=== PATIENT | female | born 1955 | race Caucasian/White ===

== ENCOUNTER 2024-10-06 09:07 | Emergency (ER) | payer MEDICAID ==
[~2024-10-06] VITALS: Ht 165.1 cm; Wt 77.1 kg
[2024-10-06 09:44] LABS: BASOPHILS # (AUTO) 0.1 K/uL (0.0-0.2); BASOPHILS % (AUTO) 0.7 % (0.0-2.0); EOSINOPHILS # (AUTO) 0.5 K/uL (0.0-0.7); EOSINOPHILS % (AUTO) 6.2 % (0.0-6.0); HEMATOCRIT 42 % (33-45); HEMOGLOBIN 13.9 g/dL (11.5-14.8); LYMPHOCYTES # (AUTO) 2.8 K/uL (0.8-4.8); LYMPHOCYTES % (AUTO) 34.7 % (20.0-44.0); MEAN CORPUSCULAR HEMOGLOBIN 30 PG (26.0-33.0); MEAN CORPUSCULAR HGB CONC 33 g/dl (31.0-36.0); MEAN CORPUSCULAR VOLUME 89 fL (82-100); MONOCYTES # (AUTO) 0.7 K/uL (0.1-1.30); MONOCYTES % (AUTO) 8.7 % (2.0-12.0); NEUTROPHILS % (AUTO) 49.7 % (43.0-81.0); PLATELET COUNT (AUTO) 261 K/uL (150-450)
[2024-10-06 10:05] LABS: ALANINE AMINOTRANSFERASE 32 U/L (12-78); ALBUMIN 3.7 g/dL (3.4-5.0); ALKALINE PHOSPHATASE 79 U/L (46-116); ASPARTATE AMINOTRANSFERASE 22 U/L (15-37); BILIRUBIN,DIRECT 0.1 mg/dL (0.0-0.2); BILIRUBIN,TOTAL 0.5 mg/dL (0.2-1.0); CALCIUM, SERUM 8.9 mg/dL (8.5-10.1); CARBON DIOXIDE 29 mmol/L (21-32); CHLORIDE 106 mmol/L (98-107); CREATININE 0.9 mg/dL (0.6-1.3); GLUCOSE 113 mg/dL (74-106); POTASSIUM 3.7 mmol/L (3.5-5.1); SODIUM SERUM 141 mmol/L (136-145); TOTAL PROTEIN, SERUM 7.8 g/dL (6.4-8.2); UREA NITROGEN, BLOOD 12 mg/dL (7-18)
[2024-10-06 10:27] LABS: NT-PRO BNP 25 pg/mL (0-125)
[2024-10-06] MEDS ORDERED: CT SWABBABLE VALVE TRANS SET 1 EA INFUS.SET MC ONE (12:51)
[2024-10-06] MEDS ORDERED: IOHEXOL-350 100 ML VIAL IV ONE (12:51)
[2024-10-06] MEDS ORDERED: IV NS 0.9% 250 ML IV ONE (12:52)
[2024-10-06] MEDS ORDERED: LABETALOL 20 MG/4 ML VIAL ONE (12:57)
[2024-10-06] MEDS: LABETALOL 20 MG/4 ML VIAL IV ONE (13:03)
[2024-10-06] MEDS ORDERED: NITROGLYCERIN 0.4 MG/TAB BOTTLE ONE (13:24)
[2024-10-06] MEDS ORDERED: METOPROLOL TARTRATE INJ 5 MG/5 ML AMPUL ONE (13:24)
[2024-10-06] MEDS: METOPROLOL TARTRATE INJ 5 MG/5 ML AMPUL IVP PRN (13:30)
[2024-10-06] MEDS: NITROGLYCERIN 0.4 MG/TAB BOTTLE SL ONE (13:45)
[2024-10-06 14:12] VITALS: BP 140/78; TEMP 97.9; O2SAT 98
== END 2024-10-06 14:13 | disposition left against medical advice (07) ==
LOC: ER 09:15
DX: R07.89 Other chest pain (principal); R68.83 Chills (without fever); R79.89 Other specified abnormal findings of blood chemistry; I10 Essential (primary) hypertension; J45.909 Unspecified asthma, uncomplicated; Z88.1 Allergy status to other antibiotic agents
CPT/HCPCS: 99285; 96374; 75574; 71045; 85025; 80048; 80076; 36415; 84484 ×2; 83880; 93005; J3490 ×3; J7050; Q9967